=== PATIENT | male | born 1965 | race Caucasian/White ===

== ENCOUNTER 2024-10-06 14:03 | Emergency (ER) | payer BC ==
[~2024-10-06] VITALS: Ht 172.7 cm; Wt 90.7 kg
[2024-10-06 14:05] VITALS: O2SAT 99
[2024-10-06 15:08] LABS: PLATELET COUNT (AUTO) 178 K/uL (152-348); RED BLOOD CELL COUNT(AUTO) 4.56 MIL/uL (4.06-5.63); RED CELL DISTRIBUTION WIDTH 14.2 % (12.1-16.2); WHITE BLOOD COUNT (AUTO) 6.8 K/uL (3.6-10.2)
[2024-10-06 15:12] LABS: *BILIRUBIN,URIN 1+ (NEGATIVE); *BLOOD, URINE NEGATIVE (NEGATIVE); *CLARITY,URINE CLEAR (CLEAR); *KETONES,URINE NEGATIVE (NEGATIVE); *PROTEIN,URINE 1+ (NEGATIVE); *UROBILINOGEN,URINE 0.2 E.U./dl (NORMAL); LEUKOCYTE ESTERASE ,URINE NEGATIVE (NEGATIVE); NITRITE, URINE NEGATIVE (NEGATIVE); UGLUCOSE NEGATIVE (NEGATIVE)
[2024-10-06 15:16] LABS: CREATININE 1.4 mg/dL (0.6-1.3); SODIUM SERUM 142.0 mmol/L (136-145); UREA NITROGEN, BLOOD 17.0 mg/dL (7-18)
[2024-10-06 15:16] LABS: *COLOR,URINE DARK YELLOW (YELLOW)
[2024-10-06 15:22] LABS: ASPARTATE AMINOTRANSFERASE 30.0 U/L (15-37); TOTAL PROTEIN, SERUM 7.3 g/dL (6.4-8.2)
[2024-10-06 15:31] LABS: SQUAMOUS EPITHELIAL CELL,UR NONE SEEN /HPF (NONE SEEN)
[2024-10-06] MEDS ORDERED: POTASSIUM BICARBONATE/CIT AC 25 MEQ TABLET.EFF ONE (16:06)
[2024-10-06] MEDS: POTASSIUM BICARBONATE/CIT AC 25 MEQ TABLET.EFF PO ONE (16:10)
[2024-10-06] MEDS ORDERED: METR500T PO (17:03)
[2024-10-06] MEDS ORDERED: CIPR500T5 PO (17:03)
== END 2024-10-06 17:19 | disposition home or self-care (01) ==
LOC: ER 14:03
DX: M25.512 Pain in left shoulder (principal); E87.6 Hypokalemia; R10.32 Left lower quadrant pain; M79.642 Pain in left hand; M79.641 Pain in right hand; M79.645 Pain in left finger(s); M79.644 Pain in right finger(s); R22.43 Localized swelling, mass and lump, lower limb, bilateral; Z88.2 Allergy status to sulfonamides; Z87.19 Personal history of other diseases of the digestive system
CPT/HCPCS: 36415; 85025; 85651; 86140; A4606; A4663